=== PATIENT | female | born 1940 | race Caucasian/White ===

== ENCOUNTER 2017-03-04 15:28 | Inpatient (IN) | payer MEDICARE, BC ==
[2017-03-04] MEDS ORDERED: Succinylcholine Chloride 20 MG/ML 10 ml SYRINGE FS ONE (15:43)
[2017-03-04] MEDS ORDERED: Propofol 200 MG/20 ML VIAL ONE (15:43)
[2017-03-04] MEDS ORDERED: Ondansetron HCl/PF 4 MG/2 ML Vial ONE (15:43)
[2017-03-04] MEDS ORDERED: Vecuronium 10 MG VIAL ONE (15:43)
[2017-03-04] MEDS ORDERED: Lidocaine 1% PF 5 ML VIAL ONE (15:43)
[2017-03-04] MEDS ORDERED: Octreotide Acetate 100 MCG/ML VIAL ONE (15:52)
[2017-03-04] MEDS ORDERED: Pantoprazole 40 MG VIAL ONE (15:52)
[2017-03-04] MEDS ORDERED: Octreotide Acetate 1,250 MCG in Sodium Chloride 0.9% 250 ML 250 ML IVPB SCH (16:00)
[2017-03-04] MEDS ORDERED: Pantoprazole 80 MG, Admixture Fee 1 EACH in Sodium Chloride 0.9% 100 ML IVP SCH (16:00)
[2017-03-04 16:09] LABS: Hematocrit 21.1 % (36.0-47.0); Mean Platelet Volume 7.4 fL (7.4-10.4); Red Blood Cell (RBC) Count 2.25 mill/uL (4.20-5.40); White Blood Cell (WBC) Count 24.6 thou/uL (4.8-10.8)
[2017-03-04 16:12] LABS: PTT 23.4 SEC (22.9-36.1); Prothrombin Time 15.1 SEC (12.0-14.7)
[2017-03-04 16:13] LABS: Anion Gap 12 mmol/L (-14-95); Lactate 3.88 mmol/L (0.50-2.20); POC Est. GFR-MDRD-African-Amer Greater than 60; POC Estimated GFR-MDRD Greater than 60; T. Carbon Dioxide 26.5 mmol/L (1.0-85.0); pH (Venous) 7.441 (7.35-7.45); vO2 Saturation-calc 68.8 % (0.0-100.0)
[2017-03-04 16:27] LABS: Band 6 % (5-11); Neutrophil 80 % (42-75); Ovalocytes SLIGHT = 2-5 cells (100X) (0-1/hpf); Polychromasia SLIGHT = 2-3 cells (100X) (0-2/hpf)
[2017-03-04 16:30] LABS: Acetaminophen Less than 6.0 mcg/mL (10.0-30.0); Salicylate Less than 8.0 mg/dL (15.0-30.0)
[2017-03-04 16:31] LABS: ALT (SGPT) Less than 7 U/L (8-55); AST (SGOT) 16 U/L (5-34); Alkaline Phosphatase 46 U/L (40-150); Anion Gap 13 mmol/L (10-20); BUN (Urea Nitrogen) 55 mg/dL (9.8-20.1); Bilirubin, Total 0.2 mg/dL (0.2-1.2); CK (CPK) 58 U/L (29-168); Calc. Creatinine Clearance 0 mL/min (70-130); Calcium 9.1 mg/dL (7.8-10.44); Carbon Dioxide 24 mmol/L (23-31); Chloride 109 mmol/L (98-107); Estimated GFR-MDRD 64; Lipase 17 U/L (8-78); Protein, Total 4.7 g/dL (6.0-8.3)
[2017-03-04 16:32] LABS: Troponin I 0.022 ng/mL (< 0.028)
[2017-03-04 16:36] LABS: Lactic Acid - Sepsis 4.2 mmol/L (0.5-2.2)
[2017-03-04 17:02] LABS: Bilirubin Small (Negative); Blood, Urine Negative (Negative); Glucose, Urine (Dipstick) Negative (Negative); Ketone, Urine Trace mg/dL (Negative); Nitrite Negative (Negative); Protein, Urine (Dipstick) 30 mg/dL (Neg-Trace); Urobilinogen 0.2 mg/dL (0.2-1.0)
[2017-03-04 17:04] LABS: Bacteria/HPF None Seen HPF (None Seen); RBC/HPF 0-3 HPF (0-3); Squamous Epithelial 0-3 HPF (0-3); WBC/HPF 0-3 HPF (0-3)
[2017-03-04 17:11] LABS: Amphetamine Detected (NotDetected); Methadone Not Detected (NotDetected); Methamphetamine Not Detected (NotDetected)
[2017-03-04 17:15] LABS: Hyaline Casts/LPF 4-6 HYALINE CAST LPF (0-3 Hyaline); Renal Epithelial None Seen HPF (0-3); Transitional Epithelial NONE SEEN HPF (0-3)
[2017-03-04] MEDS ORDERED: Ketorolac Tromethamine 30 MG/ML VIAL ONE (17:24)
--- NOTE | 2017-03-04 17:57 | RAD ---
CHEST ONE VIEW 03/04/17 HISTORY: Nausea, vomiting and diarrhea. Rectal bleeding. COMPARISON: 11/09/16. FINDINGS: There is atherosclerosis of the aorta. There appear to be stable hyperdensities in the left infrahila r region which may represent sequela of granulomatous disease. There is a curvilinear hyperdensity pr ojecting over the right aspect of the spine also seen on the prior examination. Etiology is uncertain . Lungs are hyperinflated. No consolidation or masses. No pneumothorax. IMPRESSION: 1. Stable hyperdensity in the left and right hemithorax. 2. Atherosclerosis. 3. Hyperinflation. No acute process. POS: OFF
[2017-03-04] MEDS ORDERED: Ondansetron HCl/PF 4 MG/2 ML Vial IVP PRN ×2 (18:08→20:14)
[2017-03-04] MEDS ORDERED: Ketorolac Tromethamine 30 MG/ML VIAL IVP PRN (18:14)
[2017-03-04] MEDS ORDERED: Fentanyl 100 MCG/2 ML VIAL ONE (19:36)
[2017-03-04] MEDS ORDERED: Morphine Sulfate 2 MG/ML SYRINGE SLOW IVP PRN (20:14)
[2017-03-04] MEDS ORDERED: HYDROmorphone 2 MG/ML VIAL SLOW IVP PRN (20:14)
[2017-03-04] MEDS ORDERED: Promethazine HCl 25 MG/ML VIAL IM PRN (20:14)
[2017-03-04] MEDS ORDERED: Meperidine HCl/PF 25 MG/ML VIAL SLOW IVP PRN (20:14)
[2017-03-04] MEDS ORDERED: Promethazine HCl 25 MG/ML VIAL SLOW IVP PRN (20:14)
[2017-03-04] MEDS ORDERED: Pantoprazole 40 MG VIAL IVP SCH (21:00)
--- NOTE | 2017-03-04 21:09 | HP ---
DATE OF ADMISSION: 03/04/2017 ADMITTING PHYSICIAN: Dr. Asher Espinoza. CHIEF COMPLAINT: Hematemesis. HISTORY OF PRESENT ILLNESS: The patient is a pleasant 77-year-old female that presents complaining o f 1-2 days of hematemesis, diarrhea. She reports having coffee ground emesis as well as actual brigh t red blood per rectum. She had an episode like this approximately 3 to 4 years ago. She was seen a nd assessed by Dr. Rohit Cabral. The patient also complains of a headache, fatigue and diaphor esis. She does deny chest pain at this time, fevers, chills. She reportedly had a capillary blood g lucose of 344 in the field which was assessed by EMS. Dr. Cabral is aware of the patient's arrival t o our emergency department. We will stabilize her in the IMCU and she will be assessed by [facility]. REVIEW OF SYSTEMS: The following complete review of systems was negative, unless otherwise mentioned in the HPI or below: Constitutional: Weight loss or gain, sense of well-being, ability to conduct usual activities, exerc ise tolerance. Skin/Breast: Rash, itching, changes in hair growth or loss, nail changes, breast lumps, tenderness, swelling, nipple discharge. Eyes: Vision, double vision, tearing, blind spots, pain. ENT/Mouth: Headaches (location, time of onset, duration, precipitating factors), vertigo, lightheade dness, injury. Vision, double vision, tearing, blind spots, pain, nose bleeding, colds, obstruction, discharge, dental difficulties, gingival bleeding, dentures, neck stiffness, pain, tenderness, masses in thyroid or other areas. Cardiovascular: Precordial pain, substernal distress, palpitations, syncope, dyspnea on exertion, or thopnea, nocturnal paroxysmal dyspnea, edema, cyanosis, hypertension, heart murmurs, varicosities, ph lebitis, claudication. Respiratory: Pain, shortness of breath, wheezing, stridor, cough, hemoptysis, fever or night sweats. Gastrointestinal: Poor appetite, dysphagia, indigestion, abdominal pain, heartburn, eructation, naus ea, vomiting, hematemesis, jaundice, constipation, or diarrhea, abnormal stools (jessi-colored, tarry, bloody, greasy, foul smelling), flatulence, hemorrhoids, recent changes in bowel habits. Genitourinary: Urgency, frequency, dysuria, nocturia, hematuria, polyuria, oliguria, unusual (or sky nge in) color of urine, stones, hesitancy, change in size of stream, dribbling, acute retention or in continence, libido, potency. Musculoskeletal: Pain, swelling, redness or heat of muscles or joints, limitation, of motion, muscul ar weakness, atrophy, cramps. Neurologic/Psychiatric: Convulsions, paralyses, tremor, incoordination, parasthesias, difficulties w ith memory of speech, sensory or motor disturbances, or muscular coordination (ataxia, tremor), emoti onal problems, anxiety, depression, previous psychiatric care, unusual perceptions, hallucinations. Allergy/Immunologic: Skin rash, anemia, bleeding tendency, polydipsia, polyuria, intolerance to heat or cold. PAST MEDICAL HISTORY: Significant for hypertension, GERD. PAST SURGICAL HISTORY: Positive for hysterectomy and bilateral mastectomy. PSYCHIATRIC HISTORY: No previous psychiatric history. SOCIAL HISTORY: She denies drug use, no smoking, denies alcohol, lives at home with her . HOME MEDICATIONS: None. DRUG ALLERGIES: No known drug allergies. PHYSICAL EXAMINATION: VITAL SIGNS: Vital statistics show temperature of 97.8, blood pressure 119/70, pulse 88, respiration s 16, satting 95% on room air. GENERAL: She is in some mild distress secondary she says to headache. HEENT: Normocephalic, atraumatic. EYES: PERRL. Extraocular muscles intact. ENT: Pharynx exam normal Tonsil exam normal. Mouth exam normal. Mucous membranes speak and moist. NECK: Normal range of motion. Trachea midline. Supple, no JVD. CHEST EXAM: Breath sounds clear. No wheezing, no rales, no rhonchi. CARDIOVASCULAR: Regular rate and rhythm, no murmurs, regurg or gallops. ABDOMEN: There is some tenderness in the epigastric region. Rectal exam showed grossly bloody stool . EXTREMITIES: No clubbing, cyanosis, or edema. NEUROLOGIC: Full range of motion of all extremities. Cranial nerves II-XII are grossly intact. SKIN: Warm, dry, and pale. LABORATORY DATA AND IMAGES: EKG done in the ER shows normal sinus rhythm, 85 beats per minute. Ches t x-ray shows negative for acute pulmonary disease. CBC: White count 24.6, hemoglobin 6.7, hematocr it 21.1, platelets 541, 80% neutrophils only 6% bands. CMP: Sodium of 143, potassium 3.4, chloride 109, carbon dioxide 24, BUN 55, creatinine 0.86, glucose 242. Lactic acid 4.2, calcium 9.1, AST 16, ALT 7, alkaline phosphatase 46, albumin 2.7, lipase 17. Urinalysis: Ileana, clear, 30 of protein, tr monica ketones, small amount of leukocyte esterase, no bacteria seen. ABG shows a venous blood gas show s a pH of 7.44, pCO2 of 37, pO2 of 34. Urine drug screen amphetamines detected, otherwise normal. ASSESSMENT AND PLAN: 1. Acute gastrointestinal blood loss. 2. Hypertension. PLAN: The patient will be admitted to [facility], stabilized. Gastroenterology has been consulted. We wi ll await their evaluation, we will provide fluid resuscitation and other supportive measures as neede d in the interim.
[2017-03-04] MEDS ORDERED: DISCONTINUE PREVIOUS NARCOTIC PAIN MEDICATIONS AND BENZODIAZEPINES FS SCH (21:17)
[2017-03-04] MEDS ORDERED: Fentanyl 20 MCG/ML 250 ML IVPB SCH (21:17)
[2017-03-04] MEDS ORDERED: Lorazepam 2 MG/ML VIAL SLOW IVP PRN (21:17)
[2017-03-04] MEDS ORDERED: Morphine 4 MG/ML VIAL IV PRN (21:18)
[2017-03-04] MEDS: Propofol 1,000 MG/100 ML VIAL IV PRN (21:45)
[2017-03-04 22:46] LABS: Oxyhemoglobin 97.4 % (94.0-97.0); Sodium 142 mmol/L (135-148)
[2017-03-04 22:52] LABS: Mechanical Tidal Volume 500 ml; Modified Allen's Test POSITIVE; Pressure Support 10 cmH2O; Vent YES
[2017-03-04 22:53] LABS: Mode SIMV
[2017-03-05] MEDS: Sodium Chloride 0.9% 1,000 ML IV SCH ×3 (01:09→21:26)
[2017-03-05 03:44] LABS: Band 4 % (5-11); Hematocrit 39.3 % (36.0-47.0); Mean Platelet Volume 7.3 fL (7.4-10.4); Neutrophil 77 % (42-75); Reactive Lymphocytes 3 % (0-10)
--- NOTE | 2017-03-05 06:23 | OP ---
PREOPERATIVE DIAGNOSES: 1. Gastrointestinal hemorrhage. 2. Prior history of gastritis to . 3. History of heavy nonsteroidal anti-inflammatory drugs use. POSTOPERATIVE DIAGNOSES: 1. Large 3-cm ulcer in the bulb of duodenum with visible vessel at superior aspect. This was inject ed with 1:10,000 epinephrine and cauterized 10-Egyptian heater probe and bleeding controlled. 2. Gastric ulcer 1.5 cm in size, white base. 3. Gastric ulcer 1 cm in size, white base. RECOMMENDATIONS: 1. Keep patient intubated overnight. Patient is at high risk for rebleeding, if she rebleeds, she w ill need to go to the OR. 2. Protonix drip. 3. NG tube placed and endoscopy. If patient has no bleeding, consider extubation tomorrow the following day and we will notify surgery with patient and Pulmonary, Critical Care. ANESTHESIA: General endotracheal anesthesia. PROCEDURE IN DETAIL: After the patient was informed of the risks, benefits, possible complications o f endoscopy including perforation, bleeding, reactions to medication and aspiration, informed consent was obtained. The patient was brought to endoscopy suite where she was sedated in gradual fashion. Once she was comfortable, a bite block was placed in incisural orifice. Once the airway was secured , the endoscope was then advanced through the esophagus, stomach, and second and third portion of the duodenum and slowly removed. The esophagus was normal, stomach was notable for some old blood. The re was two white based ulcers, one about 2 cm, one about 1 cm in size about the antrum. She has had raised margins. There was no active bleeding or stigmata of high risk for rebleeding. The duodenal bulb was entered and clot was encountered. This was suctioned away and removed. There was a large c lot involving two-thirds of the duodenal bulb from just inside the pylorus to the apex. This had a o ne-visible vessel pulsating, it was not actually bleeding was felt to be high risk for rebleeding. T here was fresh blood in the duodenum just distal to this. This was injected with 1:10,000 epinephrin e about 5 mL and ablated with a 10-Egyptian heater probe. There was some bleeding during ablation. Bl eeding was ultimately controlled. The scope was removed after it was observed for about 15 minutes, no further bleeding or pulsations. Retroflexed views in the stomach were normal. The patient was br ought to the ICU in stable condition.
--- NOTE | 2017-03-05 06:30 | CON ---
DATE OF CONSULTATION: 03/04/2017 GI CONSULTATION HISTORY OF PRESENT ILLNESS: Ms. Cassidy is a 77-year-old female, who presented to the emergency room today with history of hematemesis and melena. She ultimately dropped her hemoglobin down to the rang e of 6-7 in the emergency room and she had a maroon stool in the ER. She was transfused and given Pr otonix, IV fluid and started on octreotide drip. Her and her family deny any history of liver diseas e. PAST MEDICAL HISTORY: Notable for hypertension, mitral regurgitation. She had atrial fibrillation, hospitalization in September 2015. Remote history of colonoscopy, prior history of breast cancer. LABORATORY DATA: Notable for white count 24,000 on presentation, hemoglobin 6.7, platelet count of 5 41. INR was 1.2. Chemistry is notable for sodium of 145, potassium 3.3, chloride 108, anion gap 12, glucose 234. Lactic acid was 4.2, BUN and creatinine were 55 and 0.86. Liver function tests were n ormal. Albumin 2.7. The patient said for the last couple of days, she has been having some nausea, vomiting, diarrhea, an d coffee ground emesis started today. She denies prior , but she did have the endoscopy last , which showed some gastritis, duodenitis, esophagitis, which she presented with history of hematem esis. REVIEW OF SYSTEMS: Negative for dysphagia or odynophagia. Positive for NSAID use. Positive for chr onic pain medication use. PAST SURGICAL HISTORY: Includes hysterectomy and sinus surgery. ALLERGIES: None known. PRESENT MEDICATIONS HERE IN THE HOSPITAL: Otherwise none. Home medications are unclear, although wh en she was here in October she was discharged home on Aricept, Lexapro, gabapentin, Procardia, Trilept al, Protonix, Seroquel and clonidine, she reports that she has been taking quite a bit of NSAIDs rece ntly. PHYSICAL EXAMINATION: GENERAL: She is resting comfortably in bed. She has got some coffee ground like material on her lip s. HEENT: Conjunctivae and sclerae are pink. LUNGS: Clear. HEART: Mild sinus tachycardia. ABDOMEN: Soft, nontender, without rebound or guarding. EXTREMITIES: No clubbing, cyanosis or edema. LABORATORY STUDIES: As above. ASSESSMENT: Upper gastrointestinal bleed, status post hypotension in the ER with resuscitation inclu ding transfusion of 2 units of blood, Protonix and octreotide. PLAN: Endoscopy. Risks, benefits and possible complications were explained to patient and family he re at the bedside. She has multiple family members at the bedside, but I did explain them the risk t hat if we cannot control bleeding and she has active hemorrhage, she may have to have a surgery. I a lso explained the risk of perforation. If she has a large ulcer with insufflation of air, this could cause this to occur, and I have explained that she would likely have to be intubated and there is so me risk of reaction to this. They understand these and understand her grave illness at point this in time and the ongoing risk to her if we do nto try to intervene to stop the bleeding and agreed to pr oceed. I am just trying to contact the patient's at home to see if he agrees as well.
[2017-03-05] MEDS ORDERED: Potassium Phosphate 9 MMOL in Sodium Chloride 0.9% 100 ML IVPB PRN (08:51)
[2017-03-05] MEDS ORDERED: Magnesium 2 GM/NS 0.9% 100 ML 2 GM in Premix Bag 1 BAG IVPB PRN (08:51)
[2017-03-05] MEDS ORDERED: Potassium Chloride 40 MEQ in Premix Bag 1 BAG IVPB PRN (08:51)
[2017-03-05] MEDS ORDERED: CCU ELECTROLYTE REPLACEMENT PROTOCOL FS PRN (08:51)
[2017-03-05] MEDS ORDERED: Potassium Phosphate 15 MMOL in Sodium Chloride 0.9% 250 ML 250 ML IV PRN (08:51)
[2017-03-05] MEDS ORDERED: Potassium Chloride 20 MEQ TAB PO PRN (08:51)
[2017-03-05] MEDS ORDERED: Potassium Phosphate 12 MMOL in Sodium Chloride 0.9% 250 ML 250 ML IV PRN (08:51)
[2017-03-05] MEDS ORDERED: Magnesium Oxide 400 MG TAB PO PRN ×2 (08:51)
[2017-03-05] MEDS ORDERED: Pantoprazole 40 MG VIAL IVP SCH (09:00)
--- NOTE | 2017-03-05 09:42 | PDOC.PN ---
- Subjective Encounter Start Date: 03/05/17 Encounter Start Time: 09:41 Patient seen and examined. No new complaints. No overnight events. seen in ICU. remains intubated. repeat EGD today. - Objective MAR Reviewed: Yes Vital Signs & Weight: Vital Signs (12 hours) Temp Pulse Pulse Resp BP BP Pulse Ox 03/05/17 07:48 100.6 F H 78 13 96 03/05/17 07:00 100.6 F H 03/05/17 06:24 80 155/61 H 03/05/17 06:00 13 03/05/17 05:00 99.5 F 03/05/17 04:06 80 03/05/17 03:12 0 L 03/05/17 02:00 99.2 F 03/05/17 01:17 0 L 03/05/17 01:14 78 03/05/17 01:05 99.2 F 83 16 156/59 H 03/04/17 23:53 99 03/04/17 23:00 0 L 03/04/17 22:15 98.7 F 85 20 166/67 H 03/04/17 22:05 98.8 F 83 18 170/82 H 03/04/17 22:00 98.7 F Weight Weight 119 lb 4.321 oz Most Recent Monitor Data Heart Rate from ECG 79 NIBP 145/51 NIBP BP-Mean 103 Respiration from ECG 18 SpO2 96 I&O: 03/04/17 03/05/17 03/06/17 06:59 06:59 06:59 Intake Total 720 0 Output Total 416 60 Balance 304 -60 Result Diagrams: 03/05/17 03:04 03/04/17 15:50 Phys Exam - Physical Examination intubated HEENT: sclera anicteric Neck: supple Respiratory: no wheezing, no rales Cardiovascular: RRR Gastrointestinal: soft Neurological: non-focal Skin: no rash Dx/Plan (1) Anemia, blood loss Code(s): D50.0 - IRON DEFICIENCY ANEMIA SECONDARY TO BLOOD LOSS (CHRONIC) Status: Acute (2) GI bleed Code(s): K92.2 - GASTROINTESTINAL HEMORRHAGE, UNSPECIFIED Status: Acute (3) GERD (gastroesophageal reflux disease) Code(s): K21.9 - GASTRO-ESOPHAGEAL REFLUX DISEASE WITHOUT ESOPHAGITIS Status: Acute (4) HTN (hypertension) Code(s): I10 - ESSENTIAL (PRIMARY) HYPERTENSION Status: Chronic - Plan cont current plan of care * . intubated. repeat egd today. f/u with GI. continue PPI. AM labs. Monitor Hb level. start vanc and rocephin given fever and leukocytosis. blood and urine culture before abx.
[2017-03-05] MEDS ORDERED: cefTRIAXone\\ROCEPHIN 1 GM in Sodium Chloride 0.9% 100 ML IVPB SCH (09:45)
[2017-03-05 09:54] LABS: Anion Gap 10 mmol/L (10-20); BUN (Urea Nitrogen) 54 mg/dL (9.8-20.1); Calc. Creatinine Clearance 44 mL/min (70-130); Carbon Dioxide 24 mmol/L (23-31); Chloride 114 mmol/L (98-107); Estimated GFR-MDRD 61
[2017-03-05] MEDS ORDERED: Vancomycin HCl 1 GM in Premix Bag 1 BAG IVPB SCH (10:00)
[2017-03-05] MEDS: Propofol 1,000 MG/100 ML VIAL IV PRN ×2 (10:10→21:22)
[2017-03-05] MEDS: cefTRIAXone\\ROCEPHIN 1 GM, Syringe 0.4 ML in Sterile Water 9.6 ML SLOW IVP SCH (10:10)
--- NOTE | 2017-03-05 12:30 | CON ---
DATE OF CONSULTATION: 03/05/2017 SERVICE: Pulmonary Medicine. REASON FOR CONSULTATION: Intubated patient. HISTORY OF PRESENT ILLNESS: The patient is a 77-year-old white female with past medical history sign ificant for peptic ulcer disease. She started having some hematemesis for the past 1-2 days. She pr esented to the Emergency Department with coffee-ground emesis and bright red blood per rectum. She e nded up getting 2 units of blood in the emergency department and underwent an emergent EGD. She was intubated and protected her airway for this procedure. Ultimately, high risk ulcer was identified wi th a bleeding vessel that was actively bleeding. This was aggressively treated. She remains on [place] anical ventilation overnight just in case she had an event. Otherwise, there has been no interval ch gi to her condition. Her hemoglobin seems to have stabilized and she is not putting any additional fresh blood out. PAST MEDICAL HISTORY: 1. Gastroesophageal reflux disease. 2. Hypertension. PAST SURGICAL HISTORY: 1. Hysterectomy. 2. Mastectomy, bilateral. SOCIAL HISTORY: Negative for alcohol, tobacco or illicit drug use. FAMILY HISTORY: Noncontributory. ALLERGIES: No known drug allergies. MEDICATIONS: List of her inpatient medications was reviewed. Multiple updates were made at this counts include [facility] beds at the [facility]. REVIEW OF SYSTEMS: This could not be obtained as the patient is currently intubated and sedated. PHYSICAL EXAMINATION: VITAL SIGNS: Afebrile with T-max of 100.6, pulse 71, blood pressure 148/54, respirations 14, saturat ion 99% on 21% FiO2 and a PEEP of 5. GENERAL: Patient is intubated and sedated. HEENT: Normocephalic, atraumatic. Sclerae are white. Conjunctivae pink. Oral and nasal mucosa is moist without lesions. LUNGS: Decent air entry. There is no prolonged expiratory phase, wheezing, rhonchi or crackles. HEART: Normal rate, regular. ABDOMEN: Soft, nontender, nondistended, bowel sounds positive. MUSCULOSKELETAL: No cyanosis or clubbing. There is no pitting in the bilateral lower extremities. NEUROLOGIC: Grossly nonfocal. LABORATORY DATA: WBC 26.0, hemoglobin 13.0, and platelets 294,000. Neutrophil count is 77% with a d own trending band of 4%. INR 1.2. A pH 7.41, pCO2 of 32, pO2 187 on 40% FiO2 at the time. Michael m 3.3. Otherwise, basic metabolic profile is unremarkable. Amphetamines are positive in the urine d rug screen. Alcohol, acetaminophen, and salicylate are otherwise unremarkable. IMAGING: Chest x-ray demonstrates stable hyperdensity in the left and right hemithorax. Hyperinflat ion is present. Atherosclerosis is evident, but otherwise there is no acute cardiopulmonary abnormal ity. ASSESSMENT: 1. Acute respiratory failure secondary to inability to protect airway. 2. Acute blood loss anemia. 3. Hemorrhagic shock, resolved. 4. Peptic ulcer disease. 5. Amphetamine abuse, possible. 6. Overuse of nonsteroidal anti-inflammatory drugs. PLAN: Dr. Cabral is planning to look again in the stomach to make certain that everything appears to be stable. If it is, we will proceed with extubation after spontaneous breathing trial and protract ed sedation holiday. Pulmonary will continue to follow while she remains in this location. She will certainly stay here for next 24 hours, but if she demonstrates hemodynamic stability and stable hemo globin levels, she will be a candidate for transition to the floor. Once she leaves the ICU, Pulmona ry will sign off. H. pylori testing will be sent. CRITICAL CARE TIME: 30 minutes.
[2017-03-05] MEDS: Potassium Chloride 40 MEQ in Sodium Chloride 0.9% 250 ML 250 ML IVPB PRN (13:43)
--- NOTE | 2017-03-05 14:21 | PRG ---
DATE OF SERVICE: 03/05/2017 Ms. Cassidy has had no overt signs of bleeding overnight. She had 1 stool that was melenic per the nu rses. She has remained intubated for airway control. Apparently overnight, the Protonix drip was st opped. This has been restarted at 40 mg IV q.12h. this morning when the nurses called me. PHYSICAL EXAMINATION: VITAL SIGNS: Temperature is 98, pulse 71, blood pressure 140/54. ABDOMEN: Soft, nontender. GENERAL: Patient is mildly pale. LABORATORY STUDIES: White count 26,000, hemoglobin 13, platelet count 294. Chemistries: Sodium 145 , potassium 3.3, BUN and creatinine are 54 and 0.8. ASSESSMENT: Gastrointestinal hemorrhage secondary to very large duodenal ulcer with visible vessel o n endoscopy, this is a high risk lesion. PLAN: We are going to repeat her EGD this afternoon before extubation to make sure that no further i ntervention needs to be performed and that there has been good control of bleeding before extubation. Continue PPI q.12h. If endoscopy is stable, we will consider extubation later today or tomorrow wilfred reyes.
[2017-03-05] MEDS: Pantoprazole 80 MG in Sodium Chloride 0.9% 100 ML IVPB SCH (16:37)
--- NOTE | 2017-03-05 21:53 | OP ---
PROCEDURE: Followup endoscopy for ulcer with high risk for rebleed. PREPROCEDURE DIAGNOSES: Endoscopy yesterday showed large 3 cm ulcer in the anterior superior aspect of the duodenal bulb with visible vessel, active bleeding and clot controlled endoscopically. The pa tiecristina has been maintained on the ventilator overnight because of high risk for rebleeding. POSTPROCEDURE DIAGNOSES: 1. No fresh blood in the stomach, esophagus normal, still with 2 large ulcers in the antrum of the s tomach were seen with wide base, no bleeding. 2. Duodenal bulb ulcer is present, visible vessels have been ablated. There is a black spot there w ith no active bleeding or signs of fibrin thrombus or fresh thrombus. No active bleeding or signs of recent bleeding had been seen. RECOMMENDATIONS: 1. Extubate tomorrow morning if no signs of bleeding overnight. 2. Continue Protonix drip. ANESTHESIA: General endotracheal anesthesia. PROCEDURE IN DETAIL: After the patient's family was informed of the risks, benefits, and possible co mplications and indication for followup endoscopy that being for a very high risk vessel for rebleedi ng. Informed consent was obtained and the patient was brought to the endoscopy suite and the patient was sedated already on the ventilator in the ICU. The upper endoscope was advanced through the esop hagus, stomach and second and third portion of duodenum and slowly removed. The previously noted ulc ers in the antrum still were wide based with no stigmata and very low risk for bleeding. The duodena l bulb was entered and the bulb ulcer was noted to have an ablated vessel at the base with no active bleeding. There was no active clot or fresh blood in the area. The scope was removed. The patient tolerated the procedure well with no complications. PLAN: As above.
[2017-03-06] MEDS: Pantoprazole 80 MG in Sodium Chloride 0.9% 100 ML IVPB SCH ×2 (03:32→11:44)
[2017-03-06] MEDS: Sodium Chloride 0.9% 1,000 ML IV SCH ×2 (03:36→21:19)
[2017-03-06 05:18] LABS: #Eosinphils 0.1 thou/uL (0.0-0.7); #Lymphocytes 1.6 thou/uL (1.20-3.40); #Monocytes 0.9 thou/uL (0.11-0.59); #Neutrophils 11.4 thou/uL (1.40-6.50); %Basophils 0.2 % (0.0-1.0); %Eosinophils 0.7 % (0.0-10.0); %Lymphocytes 11.1 % (21.0-51.0); %Monocytes 6.6 % (0.0-10.0); Red Blood Cell (RBC) Count 3.25 mill/uL (4.20-5.40)
[2017-03-06 05:31] LABS: ALT (SGPT) 11 U/L (8-55); AST (SGOT) 15 U/L (5-34); Alkaline Phosphatase 49 U/L (40-150); Anion Gap 8 mmol/L (10-20); BUN (Urea Nitrogen) 29 mg/dL (9.8-20.1); Bilirubin, Total 0.2 mg/dL (0.2-1.2); Calc. Creatinine Clearance 64 mL/min (70-130); Calcium 7.7 mg/dL (7.8-10.44); Carbon Dioxide 24 mmol/L (23-31); Chloride 119 mmol/L (98-107); Estimated GFR-MDRD Greater than 90; Globulin 2.1 g/dL (2.4-3.5); Protein, Total 4.4 g/dL (6.0-8.3)
[2017-03-06] MEDS: Propofol 1,000 MG/100 ML VIAL IV PRN (06:03)
[2017-03-06] MEDS: Potassium Chloride 40 MEQ in Sodium Chloride 0.9% 250 ML 250 ML IVPB PRN (06:40)
--- NOTE | 2017-03-06 07:42 | PDOC.PN ---
- Subjective Encounter Start Date: 03/06/17 Encounter Start Time: 07:39 Ms. Cassidy was seen today in follow-up of GI Bleed. She is currently intubated, and sedation has just been reduced. she is moving all extremities. - Objective MAR Reviewed: Yes Vital Signs & Weight: Vital Signs (12 hours) Temp Pulse Resp BP Pulse Ox 03/06/17 06:28 78 165/61 H 03/06/17 06:00 25 H 03/06/17 04:00 23 H 03/06/17 03:37 70 03/06/17 02:00 71 16 03/06/17 00:00 99.6 F 20 03/05/17 22:17 70 03/05/17 22:00 18 03/05/17 20:00 99.6 F 69 16 95 Weight Admit Weight 119 lb Weight 119 lb 4.321 oz Most Recent Monitor Data Heart Rate from ECG 78 NIBP 165/61 NIBP BP-Mean 93 Respiration from ECG 25 SpO2 92 I&O: 03/05/17 03/06/17 03/07/17 06:59 06:59 06:59 Intake Total 720 2258 Output Total 416 1305 Balance 304 953 Result Diagrams: 03/06/17 05:00 03/06/17 05:00 Phys Exam - Physical Examination HEENT: PERRLA + rhonchi bilaterally Cardiovascular: RRR, no significant murmur, no rub Gastrointestinal: soft, positive bowel sounds Musculoskeletal: no edema Dx/Plan (1) Duodenal ulcer with hemorrhage but without obstruction Code(s): K26.4 - CHRONIC OR UNSPECIFIED DUODENAL ULCER WITH HEMORRHAGE Status : Acute (2) Gastric ulcer Code(s): K25.9 - GASTRIC ULCER, UNSP ACUTE OR CHRONIC, W/O HEMOR OR PERF Status: Acute (3) Acute blood loss anemia Code(s): D62 - ACUTE POSTHEMORRHAGIC ANEMIA Status: Acute (4) HTN (hypertension) Code(s): I10 - ESSENTIAL (PRIMARY) HYPERTENSION Status: Chronic (5) HX: breast cancer Code(s): Z85.3 - PERSONAL HISTORY OF MALIGNANT NEOPLASM OF BREAST Status: Chronic (6) Paroxysmal atrial fibrillation Code(s): I48.0 - PAROXYSMAL ATRIAL FIBRILLATION Status: Chronic - Plan * Duodenal Ulcer, and Gastric ulcer with bleed- patient is currently on a Protonix drip * HGB is around 9.9 today,will continue to monitor * HTN- blood pressure is elevated- will continue with Hydralazine as needed, and will need to reconcile her home medications once she is extubated. * AFIB- her heart rate is stable * Anticipate she will be extubated today. .
--- NOTE | 2017-03-06 08:54 | RAD ---
PORTABLE CHEST: HISTORY: Shortness of breath. Post intubation. CCU followup. COMPARISON: 03/04/17 at 5:40 a.m. FINDINGS: Prominent mitral annular calcification. There is curvilinear calcification overlying the right heart border suggesting pericardial calcification. Lungs are clear. Heart mildly enlarged. Aortic calci fication. ET tube is noted above shelley. IMPRESSION: No acute lung process. No change from prior exam. POS: GABRIELA
--- NOTE | 2017-03-06 09:31 | PRG ---
DATE OF SERVICE: 03/06/2017 SUBJECTIVE: This morning, awake, alert, responsive. No shortness of breath. No cough, wheezing. OBJECTIVE: VITAL SIGNS: Blood pressure 161/68, respiratory rate 18, sats 94. CHEST: Chest reveals decreased breath sounds, no wheezing. CARDIAC: Normal S1, S2. No gallops. ABDOMEN: Soft. NEUROLOGICAL: She is unremarkable. LABORATORY DATA: White count 14,000, H&H is 9 and 30, platelet count 250. Electrolytes are normal. IMPRESSION: 1. Recurrent gastrointestinal bleed. 2. History of prosthetic valve, on Coumadin. PLAN: She appears to be stable. She can be transferred out of the ICU. Continue antibiotics.
[2017-03-06] MEDS: Vancomycin HCl 1 GM in Premix Bag 1 BAG IVPB SCH (10:11)
--- NOTE | 2017-03-06 10:52 | PRG ---
DATE OF SERVICE: 03/06/2017 SUBJECTIVE: This morning, she is awake, alert, and agitated on the vent. OBJECTIVE: VITAL SIGNS: Blood pressure 156/61. She is on CPAP. Temperature 99. I's and O's are 2258 in and 1 305 out. CHEST: Reveals bilateral rhonchi and crackles. CARDIAC: Sinus tachycardia. ABDOMEN: Soft. LABORATORY DATA: White count 14,000, hemoglobin and hematocrit 9 and 30, and platelet count 250. El ectrolytes are normal. BUN and creatinine are slightly elevated 19 and 0.62, albumin is low at 2.3. IMPRESSION: 1. Gastrointestinal bleed secondary to duodenal ulcer. 2. Respiratory failure. 3. Encephalopathy. 4. Mild azotemia. PLAN: Hold sedation. Hopefully, we can wean and extubate. Continue antibiotics. Continue neb [place] tments. [id number] critical care time.
[2017-03-06] MEDS: cefTRIAXone\\ROCEPHIN 1 GM, Syringe 0.4 ML in Sterile Water 9.6 ML SLOW IVP SCH (11:42)
--- NOTE | 2017-03-06 15:10 | PRG ---
DATE OF SERVICE: 03/06/2017 SUBJECTIVE: Ms. Cassidy is doing okay today. She was extubated this morning. She had no NG output f rom her blood. She had one bowel movement overnight. She denies any pain or nausea at this time. MEDICATIONS: She remains on a Protonix drip. OBJECTIVE: VITAL SIGNS: Temperature 97, blood pressure 146/88, pulse 85, respirations 16. LUNGS: Clear. HEART: Regular rate and rhythm. ABDOMEN: Nontender. LABORATORY STUDIES: White count 14,000 down from 26,000; hemoglobin 9.9, it was a more accurate refl ection of her hemoglobin, she was 6.7 on admission and has received 4 units of blood. The hemoglobin was 13 yesterday; it was probably elevated. Sodium 148, potassium 3.3, BUN and creatinine are 29 an d 0.62. Albumin is 2.3. Liver function tests are otherwise normal. BUN is down from 54 to 29, crea tinine is 0.6. ASSESSMENT: 1. Upper gastrointestinal hemorrhage from nonsteroidal anti-inflammatory drugs-related ulcers. She had the same thing a year ago. Helicobacter pylori biopsies were negative. She had a high-risk lesi on. Repeat endoscopy yesterday showed ablation of the lesion and no further bleeding. She has been extubated today. Hemoglobin stable. 2. Azotemia, likely reabsorption of heme protein from her upper gastrointestinal bleed. RECOMMENDATIONS: 1. Avoid all NSAIDs. 2. When Protonix drip is complete, we will go back to 40 mg IV q.12 hours. 3. She does not have any signs of bleeding. Today her NG tube can be removed. We will start her on liquids tomorrow.
[2017-03-06] MEDS: Pantoprazole 40 MG VIAL IVP SCH (21:20)
[2017-03-07 05:09] LABS: Hematocrit 30.7 % (36.0-47.0)
[2017-03-07] MEDS: Sodium Chloride 0.9% 1,000 ML IV SCH ×2 (06:41→20:22)
[2017-03-07] MEDS: Pantoprazole 40 MG VIAL IVP SCH ×2 (08:22→20:18)
[2017-03-07] MEDS ORDERED: DC Sedation Protocol FS ONE (08:30)
--- NOTE | 2017-03-07 08:35 | PDOC.PN ---
- Subjective Encounter Start Date: 03/07/17 Encounter Start Time: 08:33 Ms. Cassidy was seen today in follow-up of GI bleed. She has been extubated. She does not have any complaints, except occasionally she will get some pain which " goes all through her body". She says she is breathing OK. - Objective MAR Reviewed: Yes Vital Signs & Weight: Vital Signs (12 hours) Temp Pulse Resp Pulse Ox 03/07/17 07:39 99 F 86 28 H 100 03/07/17 07:00 99 F 03/07/17 06:35 58 L 19 100 03/07/17 04:00 98.8 F 03/07/17 00:00 98.7 F 03/06/17 23:51 66 21 H 93 L Weight Admit Weight 119 lb Weight 129 lb 6.581 oz Most Recent Monitor Data Heart Rate from ECG 99 NIBP 145/64 NIBP BP-Mean 92 Respiration from ECG 21 SpO2 100 I&O: 03/06/17 03/07/17 03/08/17 06:59 06:59 06:59 Intake Total 2258 2231.2 Output Total 1305 1598 65 Balance 953 633.2 -65 Result Diagrams: 03/07/17 03:38 03/06/17 05:00 Phys Exam - Physical Examination HEENT: PERRLA Respiratory: no wheezing, no rales, no rhonchi, clear to auscultation bilateral Cardiovascular: RRR, no significant murmur Gastrointestinal: soft, non-tender, positive bowel sounds Musculoskeletal: no edema Dx/Plan (1) Duodenal ulcer with hemorrhage but without obstruction Code(s): K26.4 - CHRONIC OR UNSPECIFIED DUODENAL ULCER WITH HEMORRHAGE Status : Acute (2) Gastric ulcer Code(s): K25.9 - GASTRIC ULCER, UNSP ACUTE OR CHRONIC, W/O HEMOR OR PERF Status: Acute (3) Acute blood loss anemia Code(s): D62 - ACUTE POSTHEMORRHAGIC ANEMIA Status: Acute (4) HTN (hypertension) Code(s): I10 - ESSENTIAL (PRIMARY) HYPERTENSION Status: Chronic (5) HX: breast cancer Code(s): Z85.3 - PERSONAL HISTORY OF MALIGNANT NEOPLASM OF BREAST Status: Chronic (6) Paroxysmal atrial fibrillation Code(s): I48.0 - PAROXYSMAL ATRIAL FIBRILLATION Status: Chronic - Plan * Duodenal and Gastric ulcer with acute blood loss anemia- Her H&H has remained stable * Continue IV Protonix * Her diet is being advanced * HTN- blood pressure is stable * Home medication will need to be reconciled. She does not remember the names of her medications, but she goes to [facility] to receive her medications. * History of AFIB- her heart rate is stable
[2017-03-07 09:24] LABS: Vancomycin, Trough 4.8 ug/mL
[2017-03-07] MEDS: Vancomycin HCl 1 GM in Premix Bag 1 BAG IVPB SCH ×2 (09:42→22:57)
--- NOTE | 2017-03-07 16:15 | PRG ---
DATE OF SERVICE: 03/07/2017 SUBJECTIVE: This morning, awake, alert, responsive. He is no longer encephalopathic. OBJECTIVE: VITAL SIGNS: Blood pressure 145/64, sats 100%, temperature 99, respirations 18. I's & O's have been 2231 in and 1598 out. CHEST: Clear. CARDIAC: Normal S1, S2, no gallops. ABDOMEN: Soft, no masses. IMPRESSION: Status post gastrointestinal bleed, status post respiratory failure. PLAN: Increase diet to transfer to medical floor, continue PT and supportive care. Avoid NSAIDs.
--- NOTE | 2017-03-07 17:25 | PRG ---
DATE OF SERVICE: 03/07/2017 SUBJECTIVE: Ms. Cassidy is getting moved out of the ICU. She is eating and feels good. She has a go od appetite. She is still a little bit weak. She is going to go to a floor bed. MEDICATIONS: Protonix 40 mg IV q. 12 hours, vancomycin, normal saline at 75 an hour. PHYSICAL EXAMINATION: VITAL SIGNS: Temperature is 98. She has been afebrile except for a temperature of 100.3 on 03/05/20 17, pulse 80, blood pressure 152/74. ABDOMEN: Soft, nontender. She is somewhat pale and thin. LABORATORY STUDIES: Hemoglobin today is 10.2, was 9.9 yesterday. Sodium 148, potassium 3.3, BUN and creatinine are 20 and 0.62, albumin 2.3. Liver function tests normal. ASSESSMENT: 1. Gastrointestinal bleed from gastric ulcers and duodenal ulcers from NSAIDs, no bleeding in 48 briseyda rs. She remains on IV Protonix. 2. Anemia secondary to acute blood loss, stable. 3. History of paroxysmal atrial fibrillation. 4. Blood cultures negative from 03/05/2017. It is unclear why she is on the vancomycin at this time . RECOMMENDATIONS: Advance diet, continue PPI. If no bleeding, change to p.o. PPIs tomorrow. The patient has had previous biopsies for H. pylori in 2016 when she had a similar presentation that were negative. Ulcers related to heavy NSAID use. We will continue to follow.
[2017-03-08 04:35] LABS: Hematocrit 29.4 % (36.0-47.0)
[2017-03-08 04:42] LABS: Anion Gap 13 mmol/L (10-20); BUN (Urea Nitrogen) 9 mg/dL (9.8-20.1); Calc. Creatinine Clearance 80 mL/min (70-130); Calcium 8.1 mg/dL (7.8-10.44); Carbon Dioxide 21 mmol/L (23-31); Chloride 114 mmol/L (98-107); Estimated GFR-MDRD Greater than 90
[2017-03-08] MEDS: Potassium Chloride 20 MEQ TAB PO SCH ×2 (06:16→09:25)
[2017-03-08] MEDS: Pantoprazole 40 MG VIAL IVP SCH ×2 (09:23→19:29)
[2017-03-08] MEDS: Vancomycin HCl 1 GM in Premix Bag 1 BAG IVPB SCH (09:36)
[2017-03-08] MEDS: Sodium Chloride 0.9% 1,000 ML IV SCH (10:37)
[2017-03-08] MEDS ORDERED: Potassium Chloride 20 MEQ TAB PO SCH (12:30)
--- NOTE | 2017-03-08 12:45 | PRG ---
DATE OF SERVICE: 03/08/2017 SERVICE: Pulmonary Medicine. INTERVAL HISTORY: The patient is doing fine from a respiratory standpoint. She is breathing comfort ably. She has no complaints of nausea, vomiting, or chest discomfort. There has been no more blood coming from anywhere. Otherwise, there has been no change to her condition. There were no overnight events. PHYSICAL EXAMINATION: VITAL SIGNS: Afebrile, pulse 81, blood pressure 165/74, respirations 18, saturation 96% on room air. GENERAL: Patient is awake, alert, no apparent distress. LUNGS: Excellent air entry with no prolonged expiratory phase, wheezing, rhonchi or crackles. HEART: Normal rate, regular. ABDOMEN: Soft, nontender, nondistended, bowel sounds positive. MUSCULOSKELETAL: No cyanosis or clubbing. No pitting in the bilateral lower extremities. NEUROLOGIC: Grossly nonfocal. LABORATORY DATA: Hemoglobin 9.7, potassium 2.6, chloride 114. Sodium 145. Creatinine 0.54. Basic metabolic profile is otherwise unremarkable. Blood cultures x2 are negative to date. ASSESSMENT: 1. Acute respiratory failure, resolved. 2. Acute blood loss anemia. 3. Hemorrhagic shock, resolved. 4. Suspected ulcer disease. 5. Hypokalemia. PLAN: I will replace the patient's potassium. At this point, she has no further requirement for inp atient pulmonary or critical care opinion. As such, we will sign off. Please call with additional q uestions or concerns moving forward.
--- NOTE | 2017-03-08 12:51 | PRG ---
DATE OF SERVICE: 03/08/2017 Ms. Cassidy has had no bleeding. Nurses note she has been very confused. PHYSICAL EXAMINATION: VITAL SIGNS: Temperature is 98, pulse 81, blood pressure 165/74. ABDOMEN: The abdomen is soft and nontender. LUNGS: Clear. HEART: Regular rate and rhythm. LABORATORY STUDIES: Hemoglobin 9.7 today, it was 9.9 yesterday. Albumin was 10.2 yesterday. Sodium 145, potassium 2.6, BUN and creatinine are 9 and 0.54. ASSESSMENT: 1. Gastric and duodenal ulcers, likely nonsteroidal anti-inflammatory drug related. No signs of ble eding now. 2. Confusion. Reviewing her old chart she maybe has some history of some depression or bipolar, at least that is mentioned in the chart before, I am not clear when she has been treated in the past. I have asked the nurse to maybe talk with primary physician about this. 3. We will continue IV Protonix q.12. It can be changed to by mouth at discharge. 4. With regard to vancomycin antibiotic, it is unclear to me why she is still on that, but again we will defer to primary service. 5. Hypokalemia, has been replaced, it was ordered this morning.
[2017-03-08 14:08] VITALS: BMI 22.9
[2017-03-08] MEDS: NS 0.9% w/ 20 MEQ KCL 1,000 ML/1,000 ML BAG IV SCH (14:53)
--- NOTE | 2017-03-08 14:57 | PDOC.PN ---
- Subjective Encounter Start Date: 03/08/17 Encounter Start Time: 14:56 Ms. Cassidy was seen today in follow-up of duodenal and gastric ulcers. She appears uncomfortable, but says she is not having any pain. She denies abdominal pain. - Objective MAR Reviewed: Yes Vital Signs & Weight: Vital Signs (12 hours) Temp Pulse Resp BP BP Pulse Ox 03/08/17 12:00 98.3 F 81 18 163/74 H 96 03/08/17 11:39 81 16 94 L 03/08/17 11:28 98.3 F 81 18 165/74 H 96 03/08/17 07:41 98.3 F 103 H 22 H 163/77 H 95 03/08/17 06:51 78 34 H 94 L 03/08/17 04:00 98.3 F 84 18 169/83 H 93 L Weight Admit Weight 119 lb Weight 129 lb 6.581 oz Most Recent Monitor Data Heart Rate from ECG 68 NIBP 108/62 NIBP BP-Mean 68 Respiration from ECG 24 SpO2 98 I&O: 03/07/17 03/08/17 03/09/17 06:59 06:59 06:59 Intake Total 2231.2 2595 Output Total 1598 1455 Balance 633.2 1140 Result Diagrams: 03/08/17 04:08 03/08/17 04:08 Phys Exam - Physical Examination HEENT: PERRLA Respiratory: no wheezing, no rales, no rhonchi, clear to auscultation bilateral Cardiovascular: RRR, no significant murmur Gastrointestinal: soft, non-tender, positive bowel sounds Musculoskeletal: no edema Dx/Plan (1) Duodenal ulcer with hemorrhage but without obstruction Code(s): K26.4 - CHRONIC OR UNSPECIFIED DUODENAL ULCER WITH HEMORRHAGE Status : Acute (2) Gastric ulcer Code(s): K25.9 - GASTRIC ULCER, UNSP ACUTE OR CHRONIC, W/O HEMOR OR PERF Status: Acute (3) Acute blood loss anemia Code(s): D62 - ACUTE POSTHEMORRHAGIC ANEMIA Status: Acute (4) HTN (hypertension) Code(s): I10 - ESSENTIAL (PRIMARY) HYPERTENSION Status: Chronic (5) HX: breast cancer Code(s): Z85.3 - PERSONAL HISTORY OF MALIGNANT NEOPLASM OF BREAST Status: Chronic (6) Paroxysmal atrial fibrillation Code(s): I48.0 - PAROXYSMAL ATRIAL FIBRILLATION Status: Chronic (7) Mild protein-calorie malnutrition Code(s): E44.1 - MILD PROTEIN-CALORIE MALNUTRITION Status: Acute - Plan * Duodenal and Gastric Ulcer- continue Protonix. H&H has remained stable- and can reduce blood draws * Hypokalemia- suspect this is due to poor nutritional stores, and with low albumin, she meets criteria for mild malnutrition * I am not finding a reason to continue Vancomycin, so will discontinue this . * She appears extremely deconditioned- will add PT/OT
[2017-03-08] MEDS: Potassium Bicarbonate/Cit Ac 25 MEQ TAB PO SCH (18:05)
[2017-03-09] MEDS: NS 0.9% w/ 20 MEQ KCL 1,000 ML/1,000 ML BAG IV SCH ×4 (00:08→22:47)
[2017-03-09 04:51] LABS: Anion Gap 11 mmol/L (10-20); BUN (Urea Nitrogen) 6 mg/dL (9.8-20.1); Calc. Creatinine Clearance 81 mL/min (70-130); Calcium 8.3 mg/dL (7.8-10.44); Carbon Dioxide 22 mmol/L (23-31); Chloride 112 mmol/L (98-107); Estimated GFR-MDRD Greater than 90
[2017-03-09] MEDS: Pantoprazole 40 MG VIAL IVP SCH ×2 (08:04→20:10)
[2017-03-09] MEDS ORDERED: Potassium Chloride 40 MEQ in Sodium Chloride 0.9% 500 ML IVPB SCH (08:15)
[2017-03-09] MEDS: Potassium Bicarbonate/Cit Ac 25 MEQ TAB PO SCH ×2 (09:31→16:12)
[2017-03-09] MEDS ORDERED: cloNIDine 0.1 MG TAB PO PRN (14:12)
[2017-03-09] MEDS ORDERED: Acetaminophen 325 MG TAB PO PRN (14:14)
[2017-03-09] MEDS ORDERED: Benzonatate 100 MG CAP PO PRN (14:14)
--- NOTE | 2017-03-09 14:28 | PDOC.PN ---
- Subjective Encounter Start Date: 03/09/17 Encounter Start Time: 14:26 Ms. Cassidy was seen today in follow-up of Gastric and duodenal ulcer. She is complaining of some abdominal pain, in the mid epigastric region. She has not eaten much in the past few days. - Objective MAR Reviewed: Yes Vital Signs & Weight: Vital Signs (12 hours) Temp Pulse Resp BP Pulse Ox 03/09/17 11:33 91 16 95 03/09/17 08:49 99.2 F 103 H 16 171/91 H 94 L 03/09/17 08:00 99.2 F 103 H 16 16 L 03/09/17 06:02 98 14 96 Weight Admit Weight 119 lb Weight 129 lb 6.581 oz Most Recent Monitor Data Heart Rate from ECG 68 NIBP 108/62 NIBP BP-Mean 68 Respiration from ECG 24 SpO2 98 I&O: 03/08/17 03/09/17 03/10/17 06:59 06:59 06:59 Intake Total 2595 1100 360 Output Total 1455 1450 Balance 1140 -350 360 Result Diagrams: 03/08/17 04:08 03/09/17 04:06 Phys Exam - Physical Examination HEENT: PERRLA Respiratory: no wheezing, no rales, no rhonchi, clear to auscultation bilateral Cardiovascular: RRR, no significant murmur Gastrointestinal: soft, non-tender, positive bowel sounds Musculoskeletal: no edema Dx/Plan (1) Duodenal ulcer with hemorrhage but without obstruction Code(s): K26.4 - CHRONIC OR UNSPECIFIED DUODENAL ULCER WITH HEMORRHAGE Status : Acute (2) Gastric ulcer Code(s): K25.9 - GASTRIC ULCER, UNSP ACUTE OR CHRONIC, W/O HEMOR OR PERF Status: Acute (3) Acute blood loss anemia Code(s): D62 - ACUTE POSTHEMORRHAGIC ANEMIA Status: Acute (4) HTN (hypertension) Code(s): I10 - ESSENTIAL (PRIMARY) HYPERTENSION Status: Chronic (5) HX: breast cancer Code(s): Z85.3 - PERSONAL HISTORY OF MALIGNANT NEOPLASM OF BREAST Status: Chronic (6) Paroxysmal atrial fibrillation Code(s): I48.0 - PAROXYSMAL ATRIAL FIBRILLATION Status: Chronic (7) Mild protein-calorie malnutrition Code(s): E44.1 - MILD PROTEIN-CALORIE MALNUTRITION Status: Acute - Plan * Duodenal and Gastric Ulcer- stable- continue Protonix, and encourage oral intake * HTN- her blood pressure is beginning to trend up- will re-start her home medications * Hypokalemia- will continue to replace * Hypomagnesemia- replace * Dementia- she has demonstrated some mild confusion- will re-start Aricept. * PT has recommended Inpatient Rehab- will place a screen.
[2017-03-09] MEDS ORDERED: Magnesium 2 GM/NS 0.9% 100 ML 2 GM in Premix Bag 1 BAG IVPB SCH (16:00)
[2017-03-10] MEDS ORDERED: Furosemide 40 MG/4 ML VIAL ONE (02:04)
--- NOTE | 2017-03-10 05:44 | PRG ---
DATE OF SERVICE: 03/09/2017 SUBJECTIVE: Ms. Cassidy is fairly confused. She has eaten very little today. OBJECTIVE: VITAL SIGNS: Temperature is 99 to 100.3, pulse is 91, blood pressure 171/91. LUNGS: Clear. ABDOMEN: Soft, nontender. LABORATORY DATA: No labs were done today except for some electrolytes. ASSESSMENT: 1. Gastrointestinal bleed, resolved from NSAID related ulcer. 2. Anemia, stable. 3. Confusion. 4. Poor p.o. intake. RECOMMENDATIONS: Continue PPI, avoid NSAIDs. We will sign off. If I can be of any further assistan ce in the patient's care, please do not hesitate to contact me.
[2017-03-10 06:17] LABS: Anion Gap 19 mmol/L (10-20); BUN (Urea Nitrogen) 7 mg/dL (9.8-20.1); Calc. Creatinine Clearance 80 mL/min (70-130); Calcium 8.5 mg/dL (7.8-10.44); Carbon Dioxide 17 mmol/L (23-31); Chloride 111 mmol/L (98-107); Estimated GFR-MDRD Greater than 90; Magnesium 1.9 mg/dL (1.6-2.6)
[2017-03-10] MEDS: Pantoprazole 40 MG VIAL IVP SCH (08:01)
--- NOTE | 2017-03-10 08:08 | RAD ---
PORTABLE CHEST ONE VIEW: Date: 03-10-17 Time: 2:12 a.m. History: Shortness of breath, wheezing. Comparison: 03-04-17 FINDINGS/IMPRESSION: Chronic changes are again seen. No lobar consolidation, pneumothorax, carlos pleural edema, or large e ffusions are identified. POS: OFF
[2017-03-10] MEDS ORDERED: Losartan Potassium 25 MG TAB PO SCH (09:00)
[2017-03-10] MEDS ORDERED: Hydrochlorothiazide 25 MG TAB PO SCH (09:00)
[2017-03-10] MEDS ORDERED: Escitalopram Oxalate 20 mg Tablet PO SCH (09:00)
[2017-03-10] MEDS ORDERED: TRIAMTERENE 25 MG PO SCH (09:00)
[2017-03-10] MEDS ORDERED: NIFEdipine XL 30 MG TAB PO SCH (09:00)
[2017-03-10] MEDS ORDERED: Donepezil HCl 5 MG TAB PO SCH (09:00)
[2017-03-10] MEDS: Potassium Bicarbonate/Cit Ac 25 MEQ TAB PO SCH (10:34)
[2017-03-10 12:54] VITALS: TEMP 98.7
--- NOTE | 2017-03-10 15:28 | PDOC.PN ---
- Subjective Encounter Start Date: 03/10/17 Encounter Start Time: 15:27 Ms. Cassidy was seen today in follow-up. She does not have any complaints. - Objective MAR Reviewed: Yes Vital Signs & Weight: Vital Signs (12 hours) Temp Pulse Resp BP BP Pulse Ox 03/10/17 12:53 98.7 F 92 20 154/77 H 94 L 03/10/17 11:30 82 16 93 L 03/10/17 08:00 98.3 F 82 16 146/70 H 93 L 03/10/17 07:53 96 155/80 H 03/10/17 06:15 96 14 95 Weight Admit Weight 119 lb Weight 129 lb 6.581 oz Most Recent Monitor Data Heart Rate from ECG 68 NIBP 108/62 NIBP BP-Mean 68 Respiration from ECG 24 SpO2 98 I&O: 03/09/17 03/10/17 03/11/17 06:59 06:59 06:59 Intake Total 1100 1805 Output Total 1450 Balance -350 1805 Result Diagrams: 03/08/17 04:08 03/10/17 04:10 Phys Exam - Physical Examination HEENT: PERRLA Respiratory: no wheezing, no rales, no rhonchi, clear to auscultation bilateral Cardiovascular: RRR, no significant murmur Gastrointestinal: soft, non-tender, positive bowel sounds Musculoskeletal: no edema Dx/Plan (1) Duodenal ulcer with hemorrhage but without obstruction Code(s): K26.4 - CHRONIC OR UNSPECIFIED DUODENAL ULCER WITH HEMORRHAGE Status : Acute (2) Gastric ulcer Code(s): K25.9 - GASTRIC ULCER, UNSP ACUTE OR CHRONIC, W/O HEMOR OR PERF Status: Acute (3) Acute blood loss anemia Code(s): D62 - ACUTE POSTHEMORRHAGIC ANEMIA Status: Acute (4) HTN (hypertension) Code(s): I10 - ESSENTIAL (PRIMARY) HYPERTENSION Status: Chronic (5) HX: breast cancer Code(s): Z85.3 - PERSONAL HISTORY OF MALIGNANT NEOPLASM OF BREAST Status: Chronic (6) Paroxysmal atrial fibrillation Code(s): I48.0 - PAROXYSMAL ATRIAL FIBRILLATION Status: Chronic (7) Mild protein-calorie malnutrition Code(s): E44.1 - MILD PROTEIN-CALORIE MALNUTRITION Status: Acute - Plan * Duodenal Ulcer with acute blood loss anemia- she has been cleared by GI for discharge * Family would prefer her to come home * Her mental status is better today, and she would likely do better in more familiar surroundings * Stable for discharge home..
--- NOTE | 2017-03-10 22:28 | DIS ---
PRIMARY CARE PHYSICIAN: Dr. Bibiana Shane. DATE OF ADMISSION: 03/04/2017 DATE OF DISCHARGE: 03/10/2017 DISCHARGE DISPOSITION: Home. PRIMARY DISCHARGE DIAGNOSES: 1. Duodenal ulcer with bleed as well as gastric ulcer. 2. Acute blood loss anemia. 3. Hypertension. 4. Mild dementia. 5. Gastroesophageal reflux disease. DISCHARGE MEDICATIONS: Include Protonix 40 mg twice a day, clonidine 0.1 mg p.o. p.r.n. for elevated blood pressure, donepezil 5 mg daily, Lexapro 20 mg daily, losartan/hydrochlorothiazide 100/12.5 mg daily, nifedipine 30 mg daily, tramadol 50 mg twice a day as needed for pain and Dyrenium, triamteren e 25 mg daily. PROCEDURES DONE DURING THE ADMISSION: The patient had an upper endoscopy, which showed a large 3 cm ulcer in the bulb of the duodenum with a visible vessel in the superior aspect, which was injected wi th epinephrine and cauterized via heater probe with control of bleeding. Also two other gastric ulce rs were seen. The patient had a re-endoscopy on 03/05/2017. There was no evidence of any rebleeding CODE STATUS: FULL CODE. ALLERGIES: No known drug allergies. HOSPITAL COURSE: Ms. Cassidy is a 77-year-old female who presented to the emergency room with hematem esis. She was also diaphoretic and found to have a hemoglobin of 6.7. She also had an elevated lact ic acid. There was concern for her hemodynamic stability and as a result, GI was consulted. She donna t emergently to endoscopy where the large duodenal ulcer was found and cauterized as well as the farshad trevin ulcers and she was transitioned to the ICU. She was seen by the academic affairs specialist and rem ained intubated to protect her airway after the endoscopy and remained intubated until she was rescop ed to make sure that the bleeding had been controlled. It is felt that the large ulcers or the resul t of heavy NSAID use. Once she was stabilized and off the ventilator, she was counseled on the dange rs of NSAIDs and to discontinue these altogether. She was transitioned to the medical floor and was able to begin to tolerate a solid diet, was walking some prior to discharge and was subsequently disc harged home. Please note that placement in retirement and rehab was offered to the [facility], but they preferred for her to come home.
[2017-03-11 07:07] VITALS: BP 162/69
--- NOTE | 2017-03-13 14:40 | EKG ---
Test Reason : VOMITING/DIARRHEA Blood Pressure : / mmHG Vent. Rate : 085 BPM Atrial Rate : 085 BPM P-R Int : 172 ms QRS Dur : 086 ms QT Int : 354 ms P-R-T Axes : 078 028 -69 degrees QTc Int : 421 ms Normal sinus rhythm Abnormal ECG Confirmed by KAN PLATT DO ([id number]), assistant editor TAVO BELL ([id number]) on 03/13/2017 2:39:38 PM Referred By: Confirmed By:KAN PLATT DO
== END 2017-03-10 18:05 | disposition home or self-care (01) | DRG 377 ==
LOC: ERS 15:28 → SDC/OP 19:17 → CCU 20:58 → T4-A 03-07 12:13
PROVIDERS: ADMIT Internal Medicine Addiction Medicine; ATTEND Internal Medicine Addiction Medicine
PROC: 0W3P8ZZ Control Bleeding in Gastrointestinal Tract, Via Natural or Artificial Opening Endoscopic (ICD-10-PCS; 2017-03-04)
PROC: 5A1945Z Respiratory Ventilation, 24-96 Consecutive Hours (ICD-10-PCS; 2017-03-04)
PROC: 3E0G8GC Introduction of Other Therapeutic Substance into Upper GI, Via Natural or Artificial Opening Endoscopic (ICD-10-PCS; 2017-03-04)
PROC: 30233N1 Transfusion of Nonautologous Red Blood Cells into Peripheral Vein, Percutaneous Approach (ICD-10-PCS; 2017-03-04)
PROC: 0DJ08ZZ Inspection of Upper Intestinal Tract, Via Natural or Artificial Opening Endoscopic (ICD-10-PCS; principal; 2017-03-05)
DX: K26.4 Chronic or unspecified duodenal ulcer with hemorrhage (principal); J96.00 Acute respiratory failure, unspecified whether with hypoxia or hypercapnia; R57.8 Other shock; G93.40 Encephalopathy, unspecified; I95.9 Hypotension, unspecified; I48.0 Paroxysmal atrial fibrillation; F03.90 Unspecified dementia, unspecified severity, without behavioral disturbance, psychotic disturbance, mood disturbance, and anxiety; E44.1 Mild protein-calorie malnutrition; K25.9 Gastric ulcer, unspecified as acute or chronic, without hemorrhage or perforation; D62 Acute posthemorrhagic anemia; I10 Essential (primary) hypertension; K21.9 Gastro-esophageal reflux disease without esophagitis; Z90.13 Acquired absence of bilateral breasts and nipples; Z79.1 Long term (current) use of non-steroidal anti-inflammatories (NSAID); E87.6 Hypokalemia; T39.395A Adverse effect of other nonsteroidal anti-inflammatory drugs [NSAID], initial encounter; Z79.01 Long term (current) use of anticoagulants; Z95.2 Presence of prosthetic heart valve; F15.10 Other stimulant abuse, uncomplicated; I34.0 Nonrheumatic mitral (valve) insufficiency; Z85.3 Personal history of malignant neoplasm of breast; Z68.22 Body mass index [BMI] 22.0-22.9, adult; D50.0 Iron deficiency anemia secondary to blood loss (chronic)
CPT/HCPCS: 36415; 36430; 51701; 71010; 80048; 80053; 80202; 80306; 80307; 81003; 81015; 82330; 82553; 82803; 82805; 83605; 83690; 83735; 83880; 84484; 85014; 85018; 85025; 85049; 85610; 85730; 86850; 86900; 86901; 87040; 93005; 93010; 94002; 94003; 94640; 96365; 96366; 96375; 96376; A4216; A4353; C9113; G8978-GP-CK; G8979-GP-CI; G8987-GO-CJ; G8988-GO-CI; J0696; J1885; J1940; J2001; J2270; J2354; J2405; J2704; J3010; J3370; J3475; J3480; J7050; J7620; P9016

== ENCOUNTER 2018-06-24 07:19 | Emergency (ER) | payer MEDICARE, BC ==
[2018-06-24 08:17] LABS: #Eosinphils 0.1 thou/uL (0.0-0.7); #Lymphocytes 1.7 thou/uL (1.20-3.40); #Monocytes 0.5 thou/uL (0.11-0.59); #Neutrophils 5.3 thou/uL (1.40-6.50); %Basophils 0.5 % (0.0-1.0); %Eosinophils 1.3 % (0.0-10.0); %Lymphocytes 22.4 % (21.0-51.0); %Monocytes 6.5 % (0.0-10.0); %Neutrophils 69.4 % (42.0-75.0); Hemoglobin 14.1 g/dL (12.0-16.0); Mean Corpuscular HGB CONC 31.9 g/dL (32.0-36.0); Mean Corpuscular Hemoglobin 30.9 pg (27.0-31.0); Mean Corpuscular Volume 96.9 fL (78.0-98.0); Mean Platelet Volume 7.8 fL (7.4-10.4); Platelet Count 305 thou/uL (130-400); RBC Distribution Width 11.7 % (11.5-14.5); Red Blood Cell (RBC) Count 4.56 mill/uL (4.20-5.40); White Blood Cell (WBC) Count 7.6 thou/uL (4.8-10.8)
[2018-06-24 08:21] LABS: Bilirubin Negative (Negative); Blood, Urine Negative (Negative); Clarity CLOUDY (Clear); Glucose, Urine (Dipstick) Negative (Negative); Leukocyte Negative (Negative); Nitrite Negative (Negative); Protein, Urine (Dipstick) Negative (Neg-Trace); Specific Gravity, Urine 1.013 (1.002-1.036); Urobilinogen 0.2 mg/dL (0.2-1.0); pH, Urine 7.5 (5.0-9.0)
[2018-06-24 08:34] LABS: ALT (SGPT) 13 U/L (8-55); AST (SGOT) 25 U/L (5-34); Albumin 4.2 g/dL (3.4-4.8); Alkaline Phosphatase 89 U/L (40-150); Anion Gap 13 mmol/L (10-20); BUN (Urea Nitrogen) 20 mg/dL (9.8-20.1); Bilirubin, Total 0.3 mg/dL (0.2-1.2); Calc. Creatinine Clearance 0 mL/min (70-130); Calcium 9.9 mg/dL (7.8-10.44); Carbon Dioxide 30 mmol/L (23-31); Chloride 104 mmol/L (98-107); Estimated GFR-MDRD 83; Globulin 2.8 g/dL (2.4-3.5); Glucose 101 mg/dL (83-110); Lipase 50 U/L (8-78); Potassium 3.4 mmol/L (3.5-5.1); Sodium 144 mmol/L (136-145)
[2018-06-24] MEDS ORDERED: Pantoprazole 40 MG VIAL ONE (09:18)
--- NOTE | 2018-06-24 09:23 | CT ---
CT ABDOMEN AND PELVIS WITH CONTRAST: Date: 06/24/18 HISTORY: Right lower quadrant pain. Diffuse abdominal pain. Gastric ulcer. COMPARISON: CT abdomen and pelvis from 2016. FINDINGS: The lung bases are clear. There are calcific plaques along the pericardium, along the right atrium an d left ventricle. There is intracapsular rupture and peripheral calcifications of left breast implant . Calcified granulomas of the spleen. The left adrenal gland appears unremarkable. Surgical clips along the inferior vena cava. Right adrenal gland is not well seen. The common bile duct measures up to 6.0 mm, normal in patient of this age. Mild prominence of the valverde creatic duct. There is a cyst at the posterior cortex superior pole left kidney. Left kidney is slightly smaller th an the right. There is bilateral renal cortical atrophy and diffuse bilateral renal cortical scars. T he aortic contour is nonaneurysmal. No dilated loops of large or small bowel. No evidence for a perforated gastric ulcer. There is normal proximal small bowel rotation. Celiac trunk and superior mesenteric arteries are vila nt. Mild degenerative disease of the pubic symphysis. No suspicious osteolytic or osteoblastic lesions. IMPRESSION: 1. No acute inflammatory process in the abdomen or pelvis. 2. Similar appearance of the mildly dilated pancreatic duct at the pancreatic head. 3. No intrahepatic or extrahepatic biliary dilatation. 4. Intracapsular rupture of left breast implant, similar. POS: [facility]
[2018-06-24] MEDS ORDERED: ISOVUE-370 76%-LOCM 1 ML ONE (15:05)
== END 2018-06-24 10:38 | disposition home or self-care (01) ==
LOC: ERS 07:19
DX: R10.9 Unspecified abdominal pain (principal); K21.9 Gastro-esophageal reflux disease without esophagitis; I10 Essential (primary) hypertension; Z79.899 Other long term (current) drug therapy
CPT/HCPCS: 36415; 74177; 80053; 81003; 83690; 85025; 96374; C9113; Q9966

== ENCOUNTER 2018-12-13 11:29 | Emergency (ER) | payer MEDICARE, BC ==
[2018-12-13 11:55] LABS: Bilirubin Negative (Negative); Blood, Urine Negative (Negative); Glucose, Urine (Dipstick) Negative (Negative); Leukocyte Negative (Negative); Nitrite Negative (Negative); Protein, Urine (Dipstick) 30 mg/dL (Neg-Trace)
[2018-12-13 11:57] LABS: Clarity Clear (Clear)
[2018-12-13 12:03] LABS: Bacteria/HPF None Seen HPF (None Seen); RBC/HPF 0-3 HPF (0-3); Squamous Epithelial 0-3 HPF (0-3); WBC/HPF 0-3 HPF (0-3)
[2018-12-13 12:04] LABS: Calcium Oxalate Crystals 1+ HPF (None Seen)
--- NOTE | 2018-12-13 12:12 | RAD ---
XR Chest 1 View Portable History: Cough Comparison: Radiograph 2017 Findings: Dense pericardial calcifications. Heart size upper limits of normal. Lungs are clear. No pn eumothorax or effusion. Partially calcified left breast implant. Dense calcifications of the aorta. Impression: No acute intrathoracic abnormality.
[2018-12-13 12:21] LABS: #Eosinphils 0.1 thou/uL (0.0-0.7); #Lymphocytes 1.9 thou/uL (1.20-3.40); #Monocytes 0.6 thou/uL (0.11-0.59); #Neutrophils 5.2 thou/uL (1.40-6.50); %Basophils 0.4 % (0.0-1.0); %Eosinophils 1.6 % (0.0-10.0); %Lymphocytes 24.3 % (21.0-51.0); %Monocytes 7.5 % (0.0-10.0); %Neutrophils 66.2 % (42.0-75.0); Hemoglobin 14.4 g/dL (12.0-16.0); Mean Corpuscular HGB CONC 33.5 g/dL (32.0-36.0); Mean Corpuscular Hemoglobin 32.3 pg (27.0-31.0); Mean Corpuscular Volume 96.5 fL (78.0-98.0); Platelet Count 309 thou/uL (130-400); RBC Distribution Width 12.4 % (11.5-14.5); Red Blood Cell (RBC) Count 4.45 mill/uL (4.20-5.40); White Blood Cell (WBC) Count 7.8 thou/uL (4.8-10.8)
--- NOTE | 2018-12-13 12:34 | CT ---
EXAM: CT brain without contrast HISTORY: Sleepiness and shortness of breath. History of dementia. COMPARISON: 11/09/2016 TECHNIQUE: Multiple contiguous axial images were obtained and a CT of the brain without contrast. FINDINGS: There are scattered hypodensities in the subcortical and periventricular white matter consi stent with small vessel ischemic disease. There is no evidence of hydrocephalus, intracranial hemorrhage, or extra-axial fluid collection. The calvarium and overlying soft tissues are unremarkable. Postsurgical changes are seen in the sinus es. The mastoid air cells are well aerated. IMPRESSION: No evidence of acute intracranial abnormality
[2018-12-13 12:50] LABS: ALT (SGPT) Less than 7 U/L (8-55); AST (SGOT) 17 U/L (5-34); Albumin 4.2 g/dL (3.4-4.8); Alkaline Phosphatase 76 U/L (40-150); Anion Gap 14 mmol/L (10-20); BUN (Urea Nitrogen) 24 mg/dL (9.8-20.1); Bilirubin, Total 0.4 mg/dL (0.2-1.2); Calc. Creatinine Clearance 0 mL/min (70-130); Carbon Dioxide 30 mmol/L (23-31); Chloride 103 mmol/L (98-107); Estimated GFR-MDRD 77; Globulin 2.6 g/dL (2.4-3.5); Glucose 103 mg/dL (83-110); Potassium 3.2 mmol/L (3.5-5.1); Protein, Total 6.8 g/dL (6.0-8.3); Sodium 144 mmol/L (136-145)
== END 2018-12-13 13:02 | disposition home or self-care (01) ==
LOC: ERS 11:29
DX: R53.1 Weakness (principal); K21.9 Gastro-esophageal reflux disease without esophagitis; I10 Essential (primary) hypertension
CPT/HCPCS: 36415; 51701; 70450; 71045; 80053; 81003; 81015; 85025; 93005